=== PATIENT | male | born 1960 | race Caucasian/White ===

== ENCOUNTER → 2024-05-04 15:23 | Outpatient (REF) | payer SELFPAY | LOC: HWRAD 15:23 | PROVIDERS: ATTENDING PHYSICIAN Family Medicine | DX: E78.2 Mixed hyperlipidemia (principal); I10 Essential (primary) hypertension; F41.9 Anxiety disorder, unspecified; R05.3 Chronic cough | CPT/HCPCS: 71046 ==

== ENCOUNTER 2024-11-27 05:45 | Day surgery (SDC) | payer OTHER, SELFPAY ==
[2024-11-16 13:58] VITALS: BMI 29.8
[2024-11-27] VITALS (7 sets, daily range): BP systolic 130–146; BP diastolic 82–99; BMI 29.8
[2024-11-27] MEDS: TYLENOL 1000 MG PO (06:25)
[2024-11-27] MEDS: NORMOSOL-R/PLASMALYTE-A 1000 IV (06:31)
--- NOTE | 2024-11-27 06:50 | W.SUR.PREOP ---
Pre-Operative Surgical Note
-
I have examined this patient prior to the performance of the scheduled procedure.
The patient's condition is unchanged from the time of the current History and
Physical and the patient is able to undergo the scheduled procedure.
--- NOTE | 2024-11-27 06:51 | HP.FOC2 ---
Focused History & Physical
Chief Complaint
HPI:
Chief Complaint: Umbilical hernia, right hand foreign body
HPI / Indication for Planned Procedure: This is a 64-year-old male who presents with a symptomatic umbilical hernia as well as a symptomatic carbon fiber splinter in his right hand. Will plan for robotic umbilical hernia repair with mesh followed
by an excision of the foreign body from his right hand.
Relevant Past Medical History: Negative
Relevant Social History: Negative
Relevant Family History: Negative
Relevant Past Surgical History: Negative
Review of Systems
Review of Pertinent Systems: All Systems Negative
Medication
See Medication form for detailed medications: Yes
Medication List (including Herbals & OTC):
Billberry 2 cap PO DAILY 11/20/24
Chlorrela 1 tab PO .2 TIMES/WEEK 11/20/24
Fish Oil 1 cap PO DAILY 11/20/24
Glucosamine Chondroitin 1 tab PO DAILY 11/20/24
alprazolam 0.5 mg tablet 0.5 mg PO PRN PRN anxiety 11/20/24
losartan 50 mg tablet 50 mg PO .LUNCH TIME 11/20/24
piroxicam 10 mg capsule 10 mg PO PRN PRN arthritis 11/20/24
Medications Reviewed: Yes
Allergies and Reactions
Patient has Allergies: No
Noted Allergies and Reactions:
Allergy/AdvReac Type Severity Reaction Status Date / Time
No Known Allergies Allergy Verified 11/27/24 06:21
Pertinent Physical Exam
All Other Systems: Negative
Head/Neck: Normal
Diagnosis / Assessment
This is a 64-year-old male who presents with a symptomatic umbilical hernia as well as a symptomatic carbon fiber splinter in his right hand. Will plan for robotic umbilical hernia repair with mesh followed by an excision of the foreign body from
his right hand.
Plan / Procedure
This is a 64-year-old male who presents with a symptomatic umbilical hernia as well as a symptomatic carbon fiber splinter in his right hand. Will plan for robotic umbilical hernia repair with mesh followed by an excision of the foreign body from
his right hand.
Anesthesia/Sedation to be done by Anesthesia Provider: Yes
--- NOTE | 2024-11-27 08:15 | W.IMMPOSTOP ---
Surgical Immed Post Op Note
-
Primary Surgeon: Royce Green MD
Assisting Surgeon: None
Pre-op Diagnosis: Umbilical hernia, right hand foreign body
Post-op Diagnosis: Same
Procedure Performed:
1. Open umbilical hernia repair with mesh
2. Excision of right hand foreign body
Anesthesia Type: General
Specimen / Cultures:
Right hand foreign body
Estimated Blood Loss: 3 cc
Complications: None
Operative Findings: 1.2 cm umbilical defect containing preperitoneal fat. Preperitoneal pocket created and then reinforced with a 5 cm round Bard soft uncoated polypropylene mesh. The defect was then closed in the transverse direction with x2 0
PDS [id number] sutures. There was a 1 cm foreign body overlying the third MTP joint in the right hand which was excised completely and then closed with Monocryl and glue.
--- NOTE | 2024-11-27 08:17 | OR.RPT ---
Operative Report
Operative Report
Patient Name: Mekhi Quick
: 1960
Date of Operation: 11/27/2024
Preoperative Diagnosis: Umbilical hernia, right hand foreign body
Postoperative Diagnosis: Same
Procedure(s):
1. Open umbilical hernia repair with mesh
2. Excision of right hand foreign body
Surgeon(s):
Dr. Green
Label Pinker(s):
None
Anesthesia: General
Estimated Blood Loss: 3 cc
Urine Output: None
Drains/Lines/Implants: 5 cm round Bard Soft uncoated polypropylene mesh
Specimens: Right hand foreign body
Indication for surgery:
The patient has a symptomatic umbilical hernia as well as a right hand foreign body. After review of their therapeutic options, elected to pursue minimally invasive repair however after induction and reduction of the hernia the defect was palpated
to be less than 2 cm so we elected to do an open repair instead. Patient was also noted to have asymptomatic right hand foreign body overlying his third MTP joint which he stated was a 'carbon fiber splinter' which cause him pain particularly with
hand flexion and would like that removed.
Operative Findings: 1.2 cm umbilical defect containing preperitoneal fat. Preperitoneal pocket created and then reinforced with a 5 cm round Bard soft uncoated polypropylene mesh. The defect was then closed in the transverse direction with x2 0
PDS [id number] sutures. There was a 1 cm foreign body overlying the third MTP joint in the right hand which was excised completely and then closed with Monocryl and glue.
Details of the operation:
After successful induction of anesthesia, the patient was prepped and draped in the supine position. A team timeout was performed confirming administration of DVT prophylaxis, IV antibiotics and SCDs. The skin was anesthetized with 0.25% Marcaine
and an infraumbilical incision was made and dissection carried down to the fascia. The hernia sac was then encircled and carefully dissected off of the umbilical stalk and debulked using 3-0 Vicryl ties before it was returned to the abdomen. The
defect measured 1.2 cm. The preperitoneal fat was dissected to create a pocket large enough to accommodate the 5 x 5 cm mesh to ensure the mesh laid completely flat. The defect was then closed in the transverse direction using two 0 PDS
[id number] sutures. The umbilical stalk was then tacked down to the fascia with a 3-0 Vicryl suture. The dermis was then approximated with interrupted 3-0 Vicryl sutures followed by Dermabond. We then turned our attention to the right hand
which was prepped and draped in the usual fashion. After infiltrating the area with quarter percent Marcaine without epinephrine a small alexander in the skin overlying the foreign body was made with an 11 blade, however we were unable to extract it
from the epidermis as it seems to be fused so we excised the foreign body out with an elliptical incision and then closed the 1 cm wound with a three 4-0 Monocryl's followed by Dermabond. The patient returned to the Recovery Room in stable
condition. Sponge and instrument counts were correct. The foreign body was sent for pathology.
I was the attending physician and performed the procedure with no assistance. I was present for all portions of the case
Royce Green MD
== END 2024-11-27 10:00 | disposition home or self-care (01) ==
LOC: SDS 05:45
PROVIDERS: ATTENDING PHYSICIAN Surgery; FAMILY PHYSICIAN Family Medicine
DX: K42.9 Umbilical hernia without obstruction or gangrene (principal); S60.551A Superficial foreign body of right hand, initial encounter; W45.8XXA Other foreign body or object entering through skin, initial encounter
CPT/HCPCS: 49591; 36415; 88304; 93005